=== PATIENT | male | born 1955 | race Caucasian/White ===

== ENCOUNTER 2021-12-21 10:34 | Emergency (ER) | payer OTHER ==
[~2021-12-21] VITALS: Ht 193 cm; Wt 100.0 kg
[2021-12-21] MEDS ORDERED: BEBTELOVIMAB (EUA) 175 MG/2 ML VIAL IVP ONE (12:15)
[2021-12-21 12:21] LABS: COVID AG,FIA SOURCE NASAL SWAB
[2021-12-21 13:12] VITALS: BP 147/88
== END 2021-12-21 13:52 | disposition home or self-care (01) ==
LOC: EMS 10:38
DX: U07.1 COVID-19 (principal)
CPT/HCPCS: 87426; 99283; M0222; Q0222; 96374; Q9967